=== PATIENT | male | born 1980 | race Caucasian/White ===

== ENCOUNTER 2016-10-25 15:01 | Emergency (ER) | payer OTHER ==
[2016-10-25 15:13] LABS: ARTERIAL BLD GAS O2 SATURATION 97.1 % (90.0-100.0); ARTERIAL BLOOD GAS CARBOXY HB 2.1 %sat (0.0-9.0); ARTERIAL BLOOD GAS HCO3 25.4 mmol/L; ARTERIAL BLOOD GAS PCO2 40.3 mmHg (35.0-45.0); ARTERIAL BLOOD GAS pH 7.407 (7.350-7.450)
[2016-10-25 15:15] LABS: ARTERIAL BLOOD GAS ALLEN TEST NORMAL; ARTERIAL BLOOD GAS ART SITE RIGHT RADIAL; ARTERIAL BLOOD GAS DELIVERY NON REBREATHER MASK; ARTERIAL DRAW? YES
== END 2016-10-25 15:37 | disposition home or self-care (01) ==
LOC: CED 15:01
PROVIDERS: Emergency Medicine
DX: T58.91XA Toxic effect of carbon monoxide from unspecified source, accidental (unintentional), initial encounter (principal); Z90.49 Acquired absence of other specified parts of digestive tract; F17.200 Nicotine dependence, unspecified, uncomplicated
CPT/HCPCS: 36600; 82803; 99283